=== PATIENT | male | born 2000 ===

== ENCOUNTER 2018-02-19 18:43 | Emergency (ER) | payer BC ==
[2018-02-19 18:57] VITALS: BP 108/65
[2018-02-19] MEDS ORDERED: Azithromycin TAB* 250 MG PO ONE (20:05)
--- NOTE | 2018-02-19 20:05 | UC ---
Respiratory Complaint HPI - HPI Summary HPI Summary: This patient is a 17 year old M presenting to [facility] accompanied by his mother with a chief complaint of cough for 10 days. The patient rates the pain 2/10 in severity. Symptoms aggravated by running, running can induce coughing fits. Patient reports sore throat, rhinorrhea, and dizziness. Patient denies ear pain. - History of Current Complaint Chief Complaint: UCRespiratory Stated Complaint: COUGH Time Seen by Provider: 02/19/18 19:58 Hx Obtained From: Patient Onset/Duration: Lasting Days - 10, Still Present Timing: Constant Severity Initially: Moderate Severity Currently: Moderate Pain Intensity: 2 Pain Scale Used: 0-10 Numeric Character: Cough: Nonproductive Associated Signs And Symptoms: Negative: Fever - Allergies/Home Medications Allergies/Adverse Reactions: Allergies Allergy/AdvReac Type Severity Reaction Status Date / Time amoxicillin [From Augmentin] Allergy Rash Verified 02/19/18 18:57 clavulanic acid Allergy Rash Verified 02/19/18 18:57 [From Augmentin] PMH/Surg Hx/FS Hx/Imm Hx Previously Healthy: Yes Other History Of: Negative For: Hepatitis B, Hepatitis C, Anticoagulant Therapy - Surgical History Surgical History: Yes Surgery Procedure, Year, and Place: EAR RECONSTRUCTION- [facility]. cosmetic sugery bilat pinna. SHOULDER SURGERY - Family History Known Family History: Positive: Hypertension Negative: Cardiac Disease - Social History Alcohol Use: None Substance Use Type: None Smoking Status (MU): Never Smoked Tobacco - Immunization History Vaccination Up to Date: Yes Review of Systems ENT: Sore Throat, Nasal Discharge Respiratory: Cough Neurological: Other - dizziness All Other Systems Reviewed And Are Negative: Yes Physical Exam - Summary Physical Exam Summary: General: well-appearing, no pain distress Skin: warm, color reflects adequate perfusion, dry Head: normal Eyes: EOMI, DEVIN ENT: positive rhinorrhea, posterior pharynx erythema, anterior cervical lymphadenopathy Neck: supple, nontender Respiratory: CTA, breath sounds present Cardiovascular: RRR Abdomen: soft, nontender Bowel: present Musculoskeletal: normal, strength/ROM intact Neurological: sensory/motor intact, A&O x3 Psychological: affect/mood appropriate Triage Information Reviewed: Yes Vital Signs: Initial Vital Signs Temp 98.3 F 02/19/18 18:53 Pulse 67 02/19/18 18:53 Resp 16 02/19/18 18:53 BP 108/65 02/19/18 18:53 Pulse Ox 99 02/19/18 18:53 Vital Signs Reviewed: Yes UC Diagnostic Evaluation - Laboratory O2 Sat by Pulse Oximetry: 99 Respiratory Course/Dx - Course Course Of Treatment: Upper respiratory tract rhonchi to symptoms for greater than 10 days which are worsening therefore I prescribed an antibiotic. Follow- up with [facility]. Recheck sooner if worse. - Differential Dx/Diagnosis Provider Diagnoses: BRONCHITIS Discharge - Sign-Out/Discharge Documenting (check all that apply): Patient Departure All imaging exams completed and their final reports reviewed: No Studies - Discharge Plan Condition: Stable Disposition: HOME Prescriptions: Azithromycin TAB* [Zithromax TAB (Z-FLORESITA) 250 mg #6 tabs] 250 mg PO DAILY #4 tab Patient Education Materials: Acute Bronchitis (ED) [facility]errals: [facility] [Provider Group] Additional Instructions: FOLLOW UP WITH YOUR DOCTOR IF NOT COMPLETELY IMPROVED. GET RECHECKED FOR ANY WORSENING OF YOUR CONDITION OR QUESTIONS OR CONCERNS. - Billing Disposition and Condition Condition: STABLE Disposition: Home - Attestation Statements Document Initiated by Scribe: Yes Documenting Scribe: Dakota Man Provider For Whom Scribe is Documenting (Include Credential): Cl Jaimes MD Scribe Attestation: I, Dakota Man , scribed for Cl Jaimes MD on 02/19/18 at 2208. Scribe Documentation Reviewed: Yes Provider Attestation: The documentation as recorded by the Dakota ramírez accurately reflects the service I personally performed and the decisions made by me, Cl Jaimes MD
== END 2018-02-19 20:16 | disposition home or self-care (01) ==
LOC: UCEAST 18:43
DX: J40 Bronchitis, not specified as acute or chronic (principal); Z88.1 Allergy status to other antibiotic agents; Z88.0 Allergy status to penicillin
CPT/HCPCS: 99212; A9270-GY; G0463

== ENCOUNTER 2018-04-02 15:15 | Emergency (ER) | payer BC ==
[2018-04-02 15:33] VITALS: BP 107/57
--- NOTE | 2018-04-02 15:54 | UC ---
Respiratory Complaint HPI - HPI Summary HPI Summary: colds symptoms for 1 week fx with flonase and mucinex and dx with viral syndrome from [facility] most symptoms have resolved except for a lingering cough - History of Current Complaint Chief Complaint: UCGeneralIllness Stated Complaint: COUGH,FEVER,URI Time Seen by Provider: 04/02/18 15:47 Hx Obtained From: Patient Onset/Duration: Sudden Onset, Lasting Weeks - 1, Still Present Timing: Constant Pain Intensity: 0 Pain Scale Used: 0-10 Numeric Character: Cough: Productive Aggravating Factors: Nothing Alleviating Factors: Nothing Associated Signs And Symptoms: Positive: URI - Allergies/Home Medications Allergies/Adverse Reactions: Allergies Allergy/AdvReac Type Severity Reaction Status Date / Time amoxicillin [From Augmentin] Allergy Rash Verified 04/02/18 15:34 clavulanic acid Allergy Rash Verified 04/02/18 15:34 [From Augmentin] Home Medications: Home Medications Fluticasone NASAL SPRAY 50MCG* [Flonase NASAL SPRAY 50MCG*] 2 spray BOTH NARES DAILY 04/02/18 [History Confirmed 04/02/18] guaiFENesin [Mucinex] 600 mg PO PRN 04/02/18 [History Confirmed 04/02/18] PMH/Surg Hx/FS Hx/Imm Hx Previously Healthy: Yes Other History Of: Negative For: Hepatitis B, Hepatitis C, Anticoagulant Therapy - Surgical History Surgical History: Yes Surgery Procedure, Year, and Place: EAR RECONSTRUCTION- [facility]. cosmetic sugery bilat pinna. SHOULDER SURGERY - Family History Known Family History: Positive: Hypertension Negative: Cardiac Disease - Social History Occupation: Student Lives: Dormitory/Roommates Alcohol Use: Occasionally Substance Use Type: None Smoking Status (MU): Never Smoked Tobacco - Immunization History Vaccination Up to Date: Yes Review of Systems Constitutional: Negative Skin: Negative Eyes: Negative ENT: Negative Respiratory: Cough Cardiovascular: Negative Gastrointestinal: Negative Genitourinary: Negative Motor: Negative Neurovascular: Negative Musculoskeletal: Negative Neurological: Negative Psychological: Negative Is Patient Immunocompromised?: No All Other Systems Reviewed And Are Negative: Yes Physical Exam Triage Information Reviewed: Yes Appearance: Well-Appearing, No Pain Distress, Well-Nourished Vital Signs: Initial Vital Signs Temp 98.5 F 04/02/18 15:29 Pulse 69 04/02/18 15:29 Resp 16 04/02/18 15:29 BP 107/57 04/02/18 15:29 Pulse Ox 98 04/02/18 15:29 Vital Signs Reviewed: Yes Eye Exam: Normal Eyes: Positive: Conjunctiva Clear ENT Exam: Normal ENT: Positive: Normal ENT inspection, Hearing grossly normal, Pharynx normal, TMs normal, Uvula midline. Negative: Nasal congestion, Tonsillar swelling, Tonsillar exudate, Trismus, Muffled voice, Hoarse voice, Dental tenderness, Sinus tenderness Dental Exam: Normal Neck exam: Normal Neck: Positive: Supple, Nontender, No Lymphadenopathy Respiratory Exam: Normal Respiratory: Positive: Chest non-tender, Lungs clear, Normal breath sounds, No respiratory distress, No accessory muscle use Cardiovascular Exam: Normal Cardiovascular: Positive: RRR, No Murmur, Pulses Normal, Brisk Capillary Refill Musculoskeletal Exam: Normal Musculoskeletal: Positive: Strength Intact, ROM Intact, No Edema Neurological Exam: Normal Neurological: Positive: Alert, Muscle Tone Normal Psychological Exam: Normal Skin Exam: Normal UC Diagnostic Evaluation - Laboratory O2 Sat by Pulse Oximetry: 98 Respiratory Course/Dx - Course Course Of Treatment: increase fluids, tessalon, albuterol follow at [facility] as needed - Differential Dx/Diagnosis Provider Diagnoses: post viral cough Discharge - Sign-Out/Discharge Documenting (check all that apply): Patient Departure All imaging exams completed and their final reports reviewed: No Studies - Discharge Plan Condition: Stable Disposition: HOME Prescriptions: Albuterol HFA INHALER* [Ventolin HFA Inhaler*] 2 puff INH Q4H PRN #1 mdi PRN Reason: Cough Benzonatate CAP* [Tessalon 100 MG CAP*] 1 - 2 cap PO TID PRN #40 cap PRN Reason: Cough Patient Education Materials: How to Use a Metered-Dose Inhaler (ED), Cold Symptoms (ED), Acute Cough (ED) Referrals: [facility] [Outside] - If Needed - Billing Disposition and Condition Condition: STABLE Disposition: Home
== END 2018-04-02 16:00 | disposition home or self-care (01) ==
LOC: UCEAST 15:15
DX: R05 Cough (principal); Z88.0 Allergy status to penicillin; Z88.1 Allergy status to other antibiotic agents
CPT/HCPCS: 99212; G0463